=== PATIENT | female | born 2000 | race Two or more races ===

== ENCOUNTER 2021-03-06 19:18 | Emergency (ER) | payer SELFPAY ==
[~2021-03-06] VITALS: Ht 170.2 cm; Wt 59.1 kg
[2021-03-06] MEDS ORDERED: ACETAMINOPHEN 325 MG TABLET PO ONE (20:30)
[2021-03-06 21:40] VITALS: BP 115/72
== END 2021-03-06 21:49 | disposition home or self-care (01) ==
LOC: EMS 19:18
DX: S09.90XA Unspecified injury of head, initial encounter (principal); W22.8XXA Striking against or struck by other objects, initial encounter; Y93.89 Activity, other specified; Y92.89 Other specified places as the place of occurrence of the external cause; Y99.8 Other external cause status
CPT/HCPCS: 70450; 99284